=== PATIENT | male | born 2005 | race Caucasian/White ===

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

== ENCOUNTER 2023-10-22 10:05 | Emergency (ER) | payer OTHER, SELFPAY ==
[2023-10-22 10:12] VITALS: BP 124/83; PULSE 86; RESP 18; TEMP 36.6; O2SAT 96; BMI 35.6
--- NOTE | 2023-10-22 11:19 | CRLHL7_ITS ---
For Patients: As a result of the Cures Act, medical imaging exams and procedure reports are released immediately into your electronic medical record. You may view this report before your referring provider. If you have questions, please contact your health care provider. Indication: Hand caught under heavy bar Technique: Three views left hand Comparison: None Findings/Impression: Bones: Alignment is normal. No fractures or bone lesions. Joint spaces: Unremarkable. Soft tissues: Unremarkable. Dictated by Ramon Nickerson MD @ 10/22/2023 12:04:07 PM (Electronically Signed)
--- NOTE | 2023-10-22 11:19 | CRLHL7_ITS ---
For Patients: As a result of the Cures Act, medical imaging exams and procedure reports are released immediately into your electronic medical record. You may view this report before your referring provider. If you have questions, please contact your health care provider. Indication: Caught underneath heavy bar Technique: Left wrist 3 view Comparison: None Findings: Bones: Alignment is normal. No fractures or bone lesions. Joint spaces: Unremarkable. Soft tissues: Unremarkable. Impression: No sign of acute injury in the left wrist. Dictated by Renetta Quesada MD @ 10/22/2023 12:01:38 PM (Electronically Signed)
--- NOTE | 2023-10-22 11:38 | ED_ITS ---
HPI - Extremity Injury (Upper) General Date Seen: 10/22/23 Chief Complaint: Extremity Pain/Injury, Upper Stated Complaint: LT wrist injury thinks broken Time Seen by Provider: 10/22/23 11:03 Source: patient Mode of arrival: ambulatory Limitations: no limitations History of Present Illness HPI narrative: Patient is a 18-year-old male presenting for left wrist pain. 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 They were able to quickly get the plane up and he has been having pain to his left wrist since then. Denies any numbness to his fingers. Is able to move his finger without issue. Does states his wrist hurts to move. Has not taken anything yet for pain. States the pain is tolerable. No other concerns noted. Denies any other injuries. Related Data Home Medications ?Medication ?Instructions ?Recorded ?Confirmed No Known Home Medications 12/10/22 12/11/22 Allergies Allergy/AdvReac Type Severity Reaction Status Date / Time No Known Drug Allergies Allergy Verified 12/11/22 17:29 Review of Systems Status of ROS: Reports: 10 or more systems reviewed and unremarkable except as noted in History and below [facility] Medical History H/O retained foreign body fully removed ?Z87.821 - Personal history of retained foreign body fully removed (ICD-10) Sebaceous cyst ?L72.3 - Sebaceous cyst (ICD-10) Surgical History History of tonsillectomy and adenoidectomy ?Z90.89 - Acquired absence of other organs (ICD-10) Social History Narrative: Patient denies smoking and drinking alcohol. 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 Smoking Status: Never smoker Do you use any of these nicotine containing products: None How often do you have a drink containing alcohol: monthly or less How often do you have six or more drinks on one occasion: Never AUDIT-C Alcohol total score: 1 Non-prescribed substance use: denies use Caffeine: Yes Little interest or pleasure in doing things: not at all Feeling down, depressed, or hopeless: not at all Exam 2 Narrative: Exam Narrative: Const: Well-nourished, Well-developed, in mild distress Eyes: PERRL, no conjunctival injection, and symmetrical lids HENT: Atraumatic external nose and ears. Moist mucous membranes. Removed MSK:Extremities w/o deformity, decreased range of motion to left wrist secondary to pain. Tenderness noted to the dorsal aspect of the left carpal bones diffusely and the proximal metacarpals. Also tenderness noted to the volar and dorsal aspect of the distal radius and ulna. Arm compartments are soft. Skin: Warm, Dry. No rashes or lesions. Neuro: Normal Muscle tone, No focal neurological deficits. Psych: Awake, Alert, & Oriented x3. Appropriate mood and affect. Const: Vital Signs, click to edit/add: Vital Signs - 24 hr 10/22/23 10:12 Temperature 98 F Pulse Rate [Right Pulse Oximeter] 86 Respiratory Rate 18 Blood Pressure [Ri ght Upper Arm] 124/83 Pulse Oximetry 96 Oxygen Delivery Me thod Room Air Course Vital Signs Vital signs: Initial Vital Signs Temperature 98 F 10/22/23 10:12 Temperature Source Temporal Artery Scan 10/22/23 10:12 Pulse Rate 86 10/22/23 10:12 Pulse Strength 3+ Normal 10/22/23 10:12 Respiratory Rate 18 10/22/23 10:12 Blood Pressure 124/83 10/22/23 10:12 Blood Pressure Mean 96 10/22/23 10:12 Blood Pressure Position Sitting 10/22/23 10:12 Pulse Oximetry 96 10/22/23 10:12 Oxygen Delivery Method Room Air 10/22/23 10:12 Vital Signs Temperature 98 F 10/22/23 10:12 Pulse Rate 86 10/22/23 10:12 Respiratory Rate 18 10/22/23 10:12 Blood Pressure 124/83 10/22/23 10:12 Pulse Oximetry 96 10/22/23 10:12 Oxygen Delivery Method Room Air 10/22/23 10:12 Temperature 98 F 10/22/23 10:12 Pulse Rate 86 10/22/23 10:12 Respiratory Rate 18 10/22/23 10:12 Blood Pressure 124/83 10/22/23 10:12 Pulse Oximetry 96 10/22/23 10:12 Oxygen Delivery Method Room Air 10/22/23 10:12 MDM - Extremity Injury (Upper) MDM Narrative Medical decision making narrative: Patient is a 18-year-old male presenting for left wrist pain. It was a crush injury but this time there is no sign of compartment syndrome. Is not requesting any pain medication at this time. Will do an x-ray of the left hand and wrist to better evaluate. He is neurovascular intact at this time. X-rays reviewed by myself and the radiologist showed no acute fractures. That this time he can be discharged home. Do not believe a splint is necessary as I do not believe there is a scalp for fracture as he is not having any snuffbox tenderness. He is agreeable to this plan. Imaging Data Wrist x-ray: Attestation: I have reviewed the pertinent imaging results. Radiologist's impression: No sign of acute injury in the left wrist. Dictated by Renetta Quesada MD @ 10/22/2023 12:01:38 PM X-ray hand: Attestation: I have reviewed the pertinent imaging results. Radiologist's impression: Bones: Alignment is normal. No fractures or bone lesions. Joint spaces: Unremarkable. Soft tissues: Unremarkable. Dictated by Ramon Nickerson MD @ 10/22/2023 12:04:07 PM Discharge Plan Discharge Clinical Impression: Left wrist sprain Qualifiers: Encounter type: initial encounter Qualified Code(s): S63.502A - Unspecified sprain of left wrist, initial encounter Patient Disposition: Home, Self-Care Condition: Stable Instructions: Wrist Injury (ED) Additional Instructions: There is no signs of fractures on your imaging at this time. If pain is not improving over the next week you may want to follow up with primary care provider for re-evaluation of the wrist and repeat x-rays. Take Tylenol ibuprofen for pain. Prescriptions: No Action No Known Home Medications Follow Up/Referrals: Provider,Not a Local [Primary Care Provider] - Stand Alone Forms: [employer] Info Instructions
== END 2023-10-22 12:20 | disposition home or self-care (01) ==
LOC: ED 12:18
PROVIDERS: Emergency Provider Student in an Organized Health Care Education/Training Program; PCP Family Medicine
DX: S63.502A Unspecified sprain of left wrist, initial encounter (principal)
CPT/HCPCS: 73110; 73130; 99282; 99283

== ENCOUNTER 2024-09-06 14:42 | Outpatient (CLI) | payer OTHER, SELFPAY | END 2024-09-06 14:43 | disposition home or self-care (01) | PROVIDERS: PCP Family Medicine; Visit Provider Internal Medicine | DX: R61 Generalized hyperhidrosis (principal) | CPT/HCPCS: 80053; 84443 ==

== ENCOUNTER 2024-09-21 07:56 | Outpatient (CLI) | payer OTHER, SELFPAY | END 2024-09-21 07:57 | disposition home or self-care (01) | LOC: RAD 07:57 | PROVIDERS: PCP Family Medicine; Visit Provider Internal Medicine | DX: R55 Syncope and collapse (principal) | CPT/HCPCS: 93306 ==

== ENCOUNTER 2025-01-30 11:41 | Outpatient (CLI) | payer OTHER, SELFPAY | END 2025-01-30 11:42 | disposition home or self-care (01) | PROVIDERS: PCP Family Medicine; Visit Provider Family Medicine | DX: R10.9 Unspecified abdominal pain (principal) | CPT/HCPCS: 80053 ==

== ENCOUNTER 2025-02-02 08:00 | Outpatient (CLI) | payer OTHER, SELFPAY | END 2025-02-02 08:01 | disposition home or self-care (01) | LOC: NFLDREF 02-07 18:33 | PROVIDERS: PCP Family Medicine; Referring Provider Family Medicine; Visit Provider Family Medicine | DX: R19.7 Diarrhea, unspecified (principal) | CPT/HCPCS: 87045; 87046; 87427; 87493 ==